=== PATIENT | female | born 1980 | race Caucasian/White ===

== ENCOUNTER 2022-06-15 11:27 | Emergency (ER) | payer OTHER ==
[2022-06-15 12:15] LABS: BASOPHIL 0.6 % (0-2); HCT 49.3 % (37.0-47.0); HGB 16.6 g/dl (12.5-16.0); MCH 30.8 pg (25.0-31.0); MCHC 33.7 g/dL (32.0-36.0); MCV 91.5 fL (78.0-100.0); MONOCYTE 4.9 % (0-12); MPV 8.7 fL (6.0-9.5); NEUTROPHIL 70.1 % (41-80); NRBC 0; PLT 274 K/uL (150-400); RBC 5.39 M/uL (4.20-5.40); RDW 12.7 % (11.5-14.0); WBC 9.4 K/uL (4.0-10.5)
[2022-06-15 12:30] LABS: CLARITY CLEAR (CLEAR); COLOR YELLOW (YELLOW); pH 6.5 (5.0-9.0)
[2022-06-15 12:31] LABS: BILIRUBIN NEGATIVE (NEGATIVE); BLOOD 2+ Ery/uL (NEGATIVE); GLUCOSE (U) NORMAL (NORMAL); LEUKOCYTES NEGATIVE Leu/uL (NEGATIVE); NITRITE NEGATIVE (NEGATIVE); PROTEIN NEGATIVE (NEGATIVE); UROBILINOGEN 0.2 mg/dL (0.2-1.0)
[2022-06-15 12:35] LABS: BACTERIA 2+; MUCOUS MODERATE
[2022-06-15 12:36] LABS: AMPHETAMINES NEGATIVE (NEGATIVE); BARBITURATES NEGATIVE (NEGATIVE); ECSTASY (MDMA) NEGATIVE (NEGATIVE); MARIJUANA (THC) POSITIVE (NEGATIVE); METHADONE NEGATIVE (NEGATIVE); OPIATES NEGATIVE (NEGATIVE); OXYCODONE NEGATIVE (NEGATIVE)
[2022-06-15 12:50] LABS: CORONAVIRUS 2019 SARS-COV-2 NEGATIVE (NEGATIVE); INFLUENZA A NAA NEGATIVE (NEGATIVE)
[2022-06-15 13:31] LABS: ALBUMIN 3.8 g/dL (3.4-5.0); ALKALINE PHOSHATASE 70 U/L (46-116); ALT 31 U/L (14-59); AST 26 U/L (15-37); BILIRUBIN - TOTAL 0.5 mg/dL (0.2-1.0); BUN 7 mg/dL (7-18); BUN/CREAT RATIO (CALC) 10.3 RATIO; CHLORIDE 103 mmol/L (98-107); CO2 (BICARBONATE) 24 mmol/L (21-32); CREATININE 0.68 mg/dL (0.51-0.95); GLUCOSE 98 mg/dL (74-106); LIPASE 158 U/L (73-393); POTASSIUM 4.2 mmol/L (3.5-5.1); TOTAL PROTEIN 7.8 g/dL (6.4-8.2)
[2022-06-15] MEDS ORDERED: CYCLOBENZAPRINE10 MG PO (14:17)
== END 2022-06-15 14:30 | disposition home or self-care (01) ==
LOC: FER 11:27
PROVIDERS: Internal Medicine
DX: K57.30 Diverticulosis of large intestine without perforation or abscess without bleeding (principal); K76.0 Fatty (change of) liver, not elsewhere classified; D35.02 Benign neoplasm of left adrenal gland; F17.210 Nicotine dependence, cigarettes, uncomplicated; Z88.1 Allergy status to other antibiotic agents; Z91.040 Latex allergy status; Z20.822 Contact with and (suspected) exposure to COVID-19; Z28.310 Unvaccinated for COVID-19
CPT/HCPCS: 36415; 80053; 80305; 81001; 83690; 84145; 85025; G0480; J1885; J2405; U0002